=== PATIENT | male | born 2000 | race Caucasian/White ===

== ENCOUNTER 2021-10-04 08:08 | Outpatient (REF) | payer BC, SELFPAY ==
[2021-10-04 11:18] LABS: MANUAL DIFF FLAG NO
[2021-10-04 11:23] LABS: Basophils Absolute Auto 0.1 X10*3/uL (0.0-0.2); Basophils Percent Auto 1.2 % (0-2); Eosinophils Absolute Auto 0.3 X10*3/uL (0.0-0.4); Eosinophils Percent Auto 3.1 % (0-4); Hematocrit 47.6 % (42.0-52.0); Hemoglobin 15.7 g/dl (14.0-18.0); Imm Gran Abs Auto 0.02 X10*3/uL (0.00-0.03); Imm Gran Pct Auto 0.2 % (0.0-0.4); Lymphocytes Absolute Auto 3.5 X10*3/uL (1.2-4.9); Lymphocytes Percent Auto 39.1 % (20-40); Mean Corpuscular Hemoglobin 30.6 pg (27.0-33.0); Mean Corpuscular Volume 92.8 fL (80.0-98.0); Mean Platelet Volume 10.9 fL (9.4-12.4); Monocytes Absolute Auto 0.8 X10*3/uL (0.1-1.2); Neutrophils Absolute Auto 4.3 x10*3/uL (2.0-8.3); Neutrophils Percent Auto 47.4 % (45-73); Platelet Count 360 X10*3/uL (160-400); Red Blood Count 5.13 X10*6/uL (4.60-5.80); Red Cell Distribution Width 12.9 % (11.0-16.0)
[2021-10-04 11:29] LABS: Appearance Urine CLEAR; Color Urine YELLOW; Glucose Urine UA NEG (NEG); Leukocyte Esterase Urine NEG (NEG); Nitrite Urine NEG (NEG); Urine Blood NEG (NEG); Urine Ketones NEG (NEG); Urine Protein NEG (NEG-TRACE)
[2021-10-04 11:45] LABS: Alanine Aminotransferase 23 U/L (0-40); Albumin Level 4.7 g/dL (3.5-5.0); Alkaline Phosphatase 60 U/L (39-117); Anion Gap 12 (12-20); Aspartate Amino Transferase 20 U/L (5-37); Bilirubin Total 1.2 mg/dL (0.0-1.0); Blood Urea Nitrogen 10 mg/dL (9-16); Carbon Dioxide 29 mmol/L (22-29); Chloride 104 mmol/L (96-108); Cholesterol 136 mg/dL; Estimated Glomerular Filt Rate > 60; Glucose Fasting 88 mg/dL (60-99); HDL Cholesterol 42 mg/dL; LDL Cholesterol Calculated 70 mg/dl; Potassium 4.4 mmol/L (3.3-5.1); Sodium 141 mmol/L (135-145); Total Protein 7.7 g/dL (6.5-8.0); Triglycerides 120 mg/dL
[2021-10-04 11:51] LABS: TSH reflex Free T4 2.31 uIU/mL (0.32-4.0)
== END 2021-10-04 08:09 | disposition home or self-care (01) ==
LOC: HO.HMGCLDS 08:08
PROVIDERS: PCP Nurse Practitioner Family; Visit Provider Nurse Practitioner Family
DX: F41.8 Other specified anxiety disorders (principal)
CPT/HCPCS: 36415; 80053; 80061; 81003; 84443; 85025

== ENCOUNTER 2022-05-30 08:11 | Outpatient (REF) | payer BC, SELFPAY ==
[2022-05-30 12:47] LABS: Alanine Aminotransferase 17 U/L (0-40); Albumin Level 4.4 g/dL (3.5-5.0); Alkaline Phosphatase 74 U/L (39-117); Anion Gap 18 (12-20); Aspartate Amino Transferase 17 U/L (5-37); Bilirubin Total 0.3 mg/dL (0.0-1.0); Blood Urea Nitrogen 20 mg/dL (9-16); Calcium 9.4 mg/dL (8.4-10.2); Carbon Dioxide 21 mmol/L (22-29); Chloride 106 mmol/L (96-108); Estimated Glomerular Filt Rate > 60; Glucose Random 87 mg/dL (60-115); Potassium 4.2 mmol/L (3.3-5.1); Sodium 141 mmol/L (135-145); TSH reflex Free T4 0.85 uIU/mL (0.32-4.0); Total Protein 7.5 g/dL (6.5-8.0)
== END 2022-05-30 08:12 | disposition home or self-care (01) ==
LOC: HO.HMGCLDS 08:11
PROVIDERS: PCP Nurse Practitioner Family; Visit Provider Nurse Practitioner Family
DX: F41.8 Other specified anxiety disorders (principal)
CPT/HCPCS: 36415; 80053; 84443

== ENCOUNTER 2023-05-07 15:19 | Outpatient (AMB) | payer BC, SELFPAY ==
--- NOTE | 2023-05-07 15:29 | MHC.PC.OV ---
Vital Signs 05/07/23 15:30 Height 5 ft 10 in Weight 174 lb BMI 25.0 BP 110/60 Blood Pressure Location Rt brachial Position Sitting Pulse 87 Pulse Source Pulse Oximeter Pulse Oximetry (%) 95 Oxygen Delivery Method Room Air Intake Visit Reasons: Unexplained weight loss Allergies No Known Allergies Allergy (Verified 05/07/23 15:31) Tobacco use date assessed: 05/07/23 Dental Screening Dental Screen Date: 05/07/23 Did you have a dental visit in the last 12 months?: Yes Did you have a dental problem in the last 6 months where you did not have access to dental care?: No Was dental information given to patient?: Patient has dentist HPI Unexplained weight loss HPI Details Pt reports unintentional weight loss. His weight on 06/04/22 was 258lbs, today it is 174lbs (loss of 84lbs). Pt reports that he is eating but has decreased appetite and is eating less. He has not changed anything else about his lifestyle. ? if related to sertraline, last increased on 01/15/22. Pt does report nausea and vomiting approximately once a week (lately). He reports that this happens randomly. Denies chest pain, shortness of breath, cough, headache, abdominal pain, hematemesis, diarrhea, GERD, urinary changes, and blood in stool. He does report some dizziness and visual disturbances upon standing. Pt's father was recently diagnosed with tongue cancer from HPV. Paternal grandfather with bladder cancer. No family hx of colon or prostate cancer. Will order labs, UA, urine cytology, and chest xr. He will contact me if the vomiting continues, mentioned a PPI, but pt wants to hold off right now [facility] Social History Housing: House Patient Tobacco Use Status: Never used Tobacco e-Cigarette/Vaping Use: Never Used Second Hand Smoke Exposure: No service: No Current occupational status: unemployed Cognitive needs: No Hearing needs: No Vision needs: No Questionnaire Thrive Questionnaire Date Thrive assessed: 09/18/21 ROSEY-7 AMB Questionnaire ROSEY-7 Date ROSEY - 7 assessed: 09/18/21 Source: Developed by Drs. Papa Nair, Effie Luke, Abdullahi Guidry and colleagues, with an educational jim from [employer]. Review of Systems Const Reports as per HPI Physical exam (Primary Care) Vital Signs: Last Vital Signs Pulse 87 05/07/23 15:30 BP 110/60 05/07/23 15:30 Pulse Ox 95 05/07/23 15:30 Oxygen Delivery Method Room Air 05/07/23 15:30 BMI result Body Mass Index 25.0 Tobacco/Smoking Status: Tobacco use Status Tobacco use date assessed 05/07/23 05/07/23 15:35 Patient Tobacco Use Status Never used Tobacco 05/07/23 15:29 e-Cigarette/Vaping Use Never Used 05/07/23 15:29 Thrive Assessment: Date of Thrive Assessment Date Thrive assessed 09/18/21 05/07/23 15:29 Const General: cooperative Orientation/consciousness: patient oriented x3 Resp Effort & Inspection: normal respiratory effort Auscultation: clear to auscultation bilaterally Cardio Rate: regular rate Rhythm: regular rhythm Heart sounds: S1 normal heart sound present and S2 normal heart sound present Neuro General: patient oriented x3 Psych Appearance: grossly normal Mental Status: mental status grossly normal Speech and movement: Normal speech and movement present Affect: normal affect Attitude: cooperative Thought process: Normal thought process present Thought content: Normal thought content present Insight: Good insight present (Psych) Judgement: Good judgement present (Psych) Assessment and Plan Assessment & Plan (1) Weight loss: Code(s): R63.4 - Abnormal weight loss Plan: Labs ordered/chest XR (2) Family history of bladder cancer: Code(s): Z80.52 - Family history of malignant neoplasm of bladder Plan: UA and cytology ordered Plan The patient agreed to the use of a medical billing instructor for this encounter. Scribed for LIZ Singleton by Nicolette Pressley medical billing instructor, on 05/07/2023 at 16:00 EST. Orders: Orders Complete Blood Count Auto Diff Today R63.4 - Abnormal weight loss Hemoglobin A1c Today R63.4 - Abnormal weight loss UA CC w/rflx Micro + Cult Today R63.4 - Abnormal weight loss TSH reflex Free T4 Today R63.4 - Abnormal weight loss FITS Today R63.4 - Abnormal weight loss Erythrocyte Sedimentation Rate Today R63.4 - Abnormal weight loss Comprehensive Met. Panel Today R63.4 - Abnormal weight loss C Reactive Protein Today R63.4 - Abnormal weight loss HIV Ab/Ag Today R63.4 - Abnormal weight loss Hepatitis A,B,C Profile Today R63.4 - Abnormal weight loss XR chest 2V Today R63.4 - Abnormal weight loss Urine Cytology Today R63.4 - Abnormal weight loss, Z80.52 - Family history of malignant neoplasm of bladder Carcinoembryonic Antigen Today R63.4 - Abnormal weight loss Coding Level of Care Code Est Pt Level 3 (40567) Diagnoses Weight loss R63.4 Family history of bladder cancer Z80.52
[2023-05-07 15:30] VITALS: BP 110/60; PULSE 87; O2SAT 95; BMI 25.0
== END 2023-05-07 16:51 | disposition home or self-care (01) ==
PROVIDERS: PCP Nurse Practitioner Family; Visit Provider Nurse Practitioner Family
DX: R63.4 Abnormal weight loss (principal); Z80.52 Family history of malignant neoplasm of bladder
CPT/HCPCS: 99213

== ENCOUNTER 2023-05-21 08:39 | Outpatient (REF) | payer BC, SELFPAY ==
--- NOTE | ~2023-05-21 | XR_ITS ---
EXAMINATION: XR CHEST CLINICAL INFORMATION: Abnormal weight loss COMPARISON: None available. TECHNIQUE: 2 views of the chest were obtained. FINDINGS: On the lateral view only, there is a 2 cm density seen behind the trachea, not appreciated on the PA radiograph. No other significant abnormality is noted involving the heart, lungs, mediastinum, bony thorax or soft tissues. XR/XR chest 2V IMPRESSION: 2 cm density seen behind the trachea on the lateral view only. This could represent a pulmonary nodule or possibly be related to an aberrant right subclavian artery. Contrast-enhanced CT scan of the chest is recommended for further evaluation.
[2023-05-21 11:40] LABS: MANUAL DIFF FLAG NO
[2023-05-21 11:52] LABS: Basophils Absolute Auto 0.1 X10*3/uL (0.0-0.2); Eosinophils Absolute Auto 0.2 X10*3/uL (0.0-0.4); Eosinophils Percent Auto 2.1 % (0-4); Hematocrit 42.9 % (42.0-52.0); Imm Gran Abs Auto 0.03 X10*3/uL (0.00-0.03); Imm Gran Pct Auto 0.3 % (0.0-0.4); Lymphocytes Absolute Auto 3.3 X10*3/uL (1.2-4.9); Lymphocytes Percent Auto 29.3 % (20-40); Mean Corpuscular HGB Conc 32.6 g/dl (31.0-36.0); Mean Corpuscular Hemoglobin 31.5 pg (27.0-33.0); Mean Corpuscular Volume 96.4 fL (80.0-98.0); Mean Platelet Volume 10.4 fL (9.4-12.4); Monocytes Absolute Auto 0.6 X10*3/uL (0.1-1.2); Monocytes Percent Auto 5.4 % (2-11); Neutrophils Absolute Auto 7.1 x10*3/uL (2.0-8.3); Neutrophils Percent Auto 61.9 % (45-73); Platelet Count 374 X10*3/uL (160-400); Red Blood Count 4.45 X10*6/uL (4.60-5.80); Red Cell Distribution Width 13.2 % (11.0-16.0); White Blood Count 11.4 X10*3/uL (4.8-10.8)
[2023-05-21 11:52] LABS: Urine Cytology See Pathology rpt
[2023-05-21 12:06] LABS: Appearance Urine Clear; Color Urine Dark Yellow; Glucose Urine UA Negative (Negative); Leukocyte Esterase Urine Negative (Negative); Nitrite Urine Negative (Negative); Urine Blood Negative (Negative); Urine Ketones Negative (Negative); Urine Protein Negative (Neg-Trace)
[2023-05-21 12:13] LABS: Alanine Aminotransferase 11 U/L (0-40); Albumin Level 4.3 g/dL (3.5-5.0); Alkaline Phosphatase 50 U/L (39-117); Anion Gap 10 (12-20); Aspartate Amino Transferase 17 U/L (5-37); Bilirubin Total 0.5 mg/dL (0.0-1.0); Blood Urea Nitrogen 13 mg/dL (9-16); C Reactive Protein < 0.10 mg/dL (< or = 0.50); Calcium 9.4 mg/dL (8.4-10.2); Carbon Dioxide 26 mmol/L (22-29); Chloride 110 mmol/L (96-108); Estimated Glomerular Filt Rate > 60; Glucose Random 80 mg/dL (60-115); Potassium 3.9 mmol/L (3.3-5.1); Sodium 142 mmol/L (135-145)
[2023-05-21 12:22] LABS: Estimated Average Glucose 91 mg/dL; Hemoglobin A1c % 4.8 % (<6.0)
[2023-05-21 12:33] LABS: Carcinoembryonic Antigen < 1.73 ng/mL; TSH reflex Free T4 0.72 uIU/mL (0.32-4.0)
[2023-05-21 12:51] LABS: Erythrocyte Sedimentation Rate 2 MM/HR (0-15)
[2023-05-22 08:42] LABS: HBS Num1 0.05 mIU/mL (0-7.99); HBc Num1 0.09 S/CO (0.00-0.79); HBsAGNum1 0.31 S/CO (0.00-0.99); HIV AB/AG Nonreactive (Nonreactive); HIV Num 1 0.06 S/CO (0.00-0.99); Hepatitis A Antibody IgM 0.16 Index (0-0.79); Hepatitis B Core Antibody Nonreactive (Nonreactive); Hepatitis B Surface Antigen Negative (Negative); ~Hepatitis A Antibody IgM Nonreactive (Nonreactive); ~Hepatitis B Surface Antibody NONREACTIVE (Nonreactive); ~Hepatitis C Antibody Nonreactive (Nonreactive)
== END 2023-05-21 08:40 | disposition home or self-care (01) ==
LOC: HO.HMGCX 08:39
PROVIDERS: PCP Nurse Practitioner Family; Visit Provider Nurse Practitioner Family
DX: Z11.4 Encounter for screening for human immunodeficiency virus [HIV] (principal); R63.4 Abnormal weight loss; Z80.52 Family history of malignant neoplasm of bladder
CPT/HCPCS: 36415; 71046; 80053; 81003; 82378; 83036; 84443; 85025; 85652; 86140; 86704; 86706; 86709; 86803; 87340; 87389; 88112

== ENCOUNTER 2023-05-27 07:47 | Outpatient (REF) | payer BC, SELFPAY ==
--- NOTE | ~2023-05-27 | CT_ITS ---
EXAMINATION: CT CHEST WITH CONTRAST CLINICAL INFORMATION: Follow-up abnormal chest x-ray with questionable retrotracheal density on the lateral view COMPARISON: 05/21/2023 TECHNIQUE: Multidetector volumetric CT imaging of the chest was obtained after the administration of 65 mL of Omnipaque 350 intravenous contrast without immediate adverse reactions. Axial MIP volume rendering provided. Sagittal and coronal reformatted images were obtained. This CT examination was performed using dose optimization techniques as appropriate, variously including the following: *Automated exposure control *Adjustment of mA and/or kV according to patient size (this includes techniques or standardized protocols for targeted exams where dose is matched to indication/reason for exam; i.e. extremities or head) *Use of iterative reconstruction technique DLP: 148 mGy-cm FINDINGS: LOSS PREVENTION DETECTIVE: Unremarkable LUNGS: The lungs are clear with no evidence of inflammation or nodules. MEDIASTINUM: The mediastinum is normal. There is no evidence of mediastinal or hilar lymphadenopathy. There is semicircular calcification corresponding to the questionable retrotracheal lesion of unclear origin, not related to trachea or esophagus, possibly vascular. PLEURA: There is no pleural effusion. No pleural mass or thickening. AXILLA: No lymphadenopathy. UPPER ABDOMEN: Unremarkable OSSEOUS STRUCTURES: There are multiple small Schmorl's hernia with intrathoracic vertebral bodies CT/CT chest w IV con IMPRESSION: 1. No evidence of retrotracheal lesion. 2. There is semicircular calcification corresponding to the questionable retrotracheal lesion of unclear origin, not related to trachea or esophagus, possibly vascular. Fleischner guidelines were followed.
[2023-05-27] MEDS: iohexoL 350 MG/ML 100 ML INFUS..BTL IV (09:05)
== END 2023-05-27 07:48 | disposition home or self-care (01) ==
LOC: HO.CT 07:47
PROVIDERS: PCP Nurse Practitioner Family; Visit Provider Nurse Practitioner Family
DX: R93.89 Abnormal findings on diagnostic imaging of other specified body structures (principal); Q67.8 Other congenital deformities of chest
CPT/HCPCS: 71260; Q9967

== ENCOUNTER 2023-06-11 09:54 | Outpatient (AMB) | payer BC, SELFPAY ==
[2023-06-11 10:11] VITALS: BP 138/76; PULSE 64; O2SAT 98; BMI 23.8
--- NOTE | 2023-06-11 10:11 | A.OFFPC_ITS ---
Vital Signs 06/11/23 10:11 Height 5 ft 10 in Weight 166 lb 2 oz BMI 23.8 BP 138/76 Blood Pressure Location Rt brachial Position Sitting Pulse 64 Pulse Source Pulse Oximeter Pulse Oximetry (%) 98 Oxygen Delivery Method Room Air Intake Visit Reasons: Annual PE Allergies No Known Allergies Allergy (Verified 06/11/23 10:13) Tobacco use date assessed: 06/11/23 Dental Screening Dental Screen Date: 06/11/23 Did you have a dental visit in the last 12 months?: Yes Did you have a dental problem in the last 6 months where you did not have access to dental care?: No Was dental information given to patient?: Patient has dentist HPI Annual PE HPI Details Pt is here for a PE. Will order labs. Pt recently had a chest XR/labs due to weight loss which showed 2 cm density seen behind the trachea on the lateral view only. This could represent a pulmonary nodule or possibly be related to an aberrant right subclavian artery. Pt had a subsequent chest CT which showed semicircular calcification corresponding to the questionable retrotracheal lesion of unclear origin, not related to trachea or esophagus, possibly vascular. Pt continues to lose weight. He has lost 92 pounds since May 2022. He reports intermittent nausea and vomiting, reports that when he vomits it is either dry heaving or bilious. Pt denies any diarrhea, constipation, and abdominal pain. Will refer to GI. Leukocytosis noted, will repeat labs. Pt reports that he is very diaphoretic at night over the last week. [facility] Social History Housing: House Patient Tobacco Use Status: Never used Tobacco e-Cigarette/Vaping Use: Never Used Second Hand Smoke Exposure: No service: No Current occupational status: unemployed Cognitive needs: No Hearing needs: No Vision needs: No Questionnaire Thrive Questionnaire Date Thrive assessed: 09/18/21 ROSEY-7 AMB Questionnaire ROSEY-7 Date ROSEY - 7 assessed: 09/18/21 Source: Developed by Drs. Papa Nair, Effie Luke, Abdullahi Guidry and colleagues, with an educational jim from [employer]. Review of Systems Const Denies chills and Denies fever(s) Eyes Denies blurry vision ENT Denies vertigo, Denies dizziness and Denies sore throat Card Denies chest pain at rest, Denies chest pain with activity, Denies diaphoresis, Denies dyspnea and Denies dyspnea on exertion Resp Denies cough, Denies dyspnea, Denies dyspnea on exertion and Denies wheezing GI Denies abdominal pain, Denies melena, Denies hematochezia, Denies constipation, Denies diarrhea and Denies loose stools Denies hematuria Musc Denies numbness and Denies tingling Skin/Breast Denies lesions Neuro Denies vertigo, Denies dizziness, Denies numbness and Denies tingling Psych Denies anxiety, Denies depression, Denies homicidal ideation, Denies suicidal ideation and Denies other (substance abuse) Aller/Immun Denies wheezing Physical exam (Primary Care) Vital Signs: Last Vital Signs Pulse 64 06/11/23 10:11 BP 138/76 06/11/23 10:11 Pulse Ox 98 06/11/23 10:11 Oxygen Delivery Method Room Air 06/11/23 10:11 BMI result Body Mass Index 23.8 Tobacco/Smoking Status: Tobacco use Status Tobacco use date assessed 06/11/23 06/11/23 10:16 Patient Tobacco Use Status Never used Tobacco 06/11/23 10:13 e-Cigarette/Vaping Use Never Used 06/11/23 10:13 Thrive Assessment: Date of Thrive Assessment Date Thrive assessed 09/18/21 06/11/23 10:13 Const General: cooperative Nutritional Appearance: well nourished Orientation/consciousness: patient oriented x3 HENMT Head: Yes normal to inspection, Yes normocephalic and Yes atraumatic Ears: TM's normal bilaterally Eyes General: appearance normal, both eyes and all related structures Alignment and Position: alignment normal and position normal Neck Neck: Yes normal visual inspection and Yes no lymphadenopathy Thyroid: Thyroid normal Resp Effort & Inspection: normal respiratory effort Auscultation: clear to auscultation bilaterally Cardio Rate: regular rate Rhythm: regular rhythm Heart sounds: S1 normal heart sound present, S2 normal heart sound present and no murmurs GI Palpation (GI): Soft to palpation and nontender Auscultation: normal bowel sounds Male General Exam: Yes normal external exam Skin Rashes: no rashes Neuro General: patient oriented x3, moves all extremities, no focal motor deficits and deep tendon reflexes 2+ bilaterally Romberg Test: Negative Psych Appearance: grossly normal Mental Status: mental status grossly normal Speech and movement: Normal speech and movement present Affect: normal affect Attitude: cooperative Thought process: Normal thought process present Thought content: Normal thought content present Insight: Good insight present (Psych) Judgement: Good judgement present (Psych) Assessment and Plan Assessment & Plan (1) Leukocytosis: Code(s): D72.829 - Elevated white blood cell count, unspecified Plan: Labs ordered (2) Weight loss: Code(s): R63.4 - Abnormal weight loss Plan: Referred to GI (3) Nausea & vomiting: Code(s): R11.2 - Nausea with vomiting, unspecified Plan: Referred to GI Plan The patient agreed to the use of a pediatrician/medical doctor for this encounter. Scribed for DIMA Singleton-BC by Nicolette Pressley pediatrician/medical doctor, on 06/11/2023 at 10:30 EST Orders: Orders TSH reflex Free T4 Today D72.829 - Elevated white blood cell count, unspecified UA CC w/rflx Micro + Cult Today D72.829 - Elevated white blood cell count, unspecified Complete Blood Count Auto Diff Today D72.829 - Elevated white blood cell count, unspecified Comprehensive [place]. Panel Fast Today D72.829 - Elevated white blood cell count, unspecified Lipid Panel Today D72.829 - Elevated white blood cell count, unspecified H pylori Ag Stool Today D72.829 - Elevated white blood cell count, unspecified, R63.4 - Abnormal weight loss Referrals Gastroenterology Referral D72.829 - Elevated white blood cell count, unspecified, R11.2 - Nausea with vomiting, unspecified, R63.4 - Abnormal weight loss Coding Level of Care Code Est Pt Prev Care 18-39y([id number]) Diagnoses Leukocytosis D72.829 Weight loss R63.4 Nausea & vomiting R11.2
== END 2023-06-11 10:58 | disposition home or self-care (01) ==
PROVIDERS: PCP Nurse Practitioner Family; Visit Provider Nurse Practitioner Family
DX: Z00.00 Encounter for general adult medical examination without abnormal findings (principal); D72.829 Elevated white blood cell count, unspecified; R63.4 Abnormal weight loss; R11.2 Nausea with vomiting, unspecified
CPT/HCPCS: 99395

== ENCOUNTER 2023-06-11 10:59 | Outpatient (REF) | payer BC, SELFPAY ==
[2023-06-11 13:12] LABS: Appearance Urine Clear; Color Urine Yellow; Glucose Urine UA Negative (Negative); Leukocyte Esterase Urine Negative (Negative); Nitrite Urine Negative (Negative); Specific Gravity - Urine 1.015 (1.005-1.025); Urine Blood Negative (Negative); Urine Ketones Negative (Negative); Urine Protein Negative (Neg-Trace)
[2023-06-11 13:24] LABS: MANUAL DIFF FLAG NO
[2023-06-11 13:37] LABS: Basophils Absolute Auto 0.1 X10*3/uL (0.0-0.2); Basophils Percent Auto 0.9 % (0-2); Eosinophils Absolute Auto 0.2 X10*3/uL (0.0-0.4); Eosinophils Percent Auto 1.3 % (0-4); Hematocrit 43.7 % (42.0-52.0); Hemoglobin 14.5 g/dl (14.0-18.0); Imm Gran Abs Auto 0.06 X10*3/uL (0.00-0.03); Imm Gran Pct Auto 0.5 % (0.0-0.4); Lymphocytes Absolute Auto 3.6 X10*3/uL (1.2-4.9); Mean Corpuscular HGB Conc 33.2 g/dl (31.0-36.0); Mean Corpuscular Hemoglobin 31.4 pg (27.0-33.0); Mean Corpuscular Volume 94.6 fL (80.0-98.0); Mean Platelet Volume 10.1 fL (9.4-12.4); Monocytes Absolute Auto 0.7 X10*3/uL (0.1-1.2); Monocytes Percent Auto 6.2 % (2-11); Neutrophils Absolute Auto 7.3 x10*3/uL (2.0-8.3); Neutrophils Percent Auto 61.1 % (45-73); Platelet Count 459 X10*3/uL (160-400); Red Blood Count 4.62 X10*6/uL (4.60-5.80); Red Cell Distribution Width 13.2 % (11.0-16.0); White Blood Count 11.9 X10*3/uL (4.8-10.8)
[2023-06-11 14:24] LABS: Alanine Aminotransferase 12 U/L (0-40); Albumin Level 4.6 g/dL (3.5-5.0); Alkaline Phosphatase 53 U/L (39-117); Anion Gap 14 (12-20); Aspartate Amino Transferase 18 U/L (5-37); Bilirubin Total 0.6 mg/dL (0.0-1.0); Blood Urea Nitrogen 15 mg/dL (9-16); Calcium 9.9 mg/dL (8.4-10.2); Carbon Dioxide 25 mmol/L (22-29); Chloride 105 mmol/L (96-108); Cholesterol 160 mg/dL (<200); Estimated Glomerular Filt Rate > 60; Glucose Fasting 92 mg/dL (60-99); HDL Cholesterol 50 mg/dL (>40); LDL Cholesterol Calculated 98 mg/dL (<100); Potassium 4.2 mmol/L (3.3-5.1); Sodium 140 mmol/L (135-145); TSH reflex Free T4 0.92 uIU/mL (0.32-4.0); Total Protein 7.7 g/dL (6.5-8.0); Triglycerides 63 mg/dL (<150)
== END 2023-06-11 11:00 | disposition home or self-care (01) ==
LOC: HO.HMGCLDS 10:59
PROVIDERS: PCP Nurse Practitioner Family; Visit Provider Nurse Practitioner Family
DX: D72.829 Elevated white blood cell count, unspecified (principal); R63.4 Abnormal weight loss
CPT/HCPCS: 36415; 80053; 80061; 81003; 84443; 85025